=== PATIENT | female | born 1940 | race Caucasian/White ===

== ENCOUNTER 2017-02-13 20:00 | Inpatient (IN) | payer MEDICARE, MEDICAID ==
[~2017-02-13] VITALS: Ht 162.6 cm; Wt 69.7 kg
[2017-02-13 21:29] VITALS: BP 153/47; PULSE 85; TEMP 99.7
[2017-02-13] MEDS ORDERED: TYLEINFANT PO (22:23)
[2017-02-13] MEDS ORDERED: ASPIRIN E.C. 8181 MG PO (22:24)
[2017-02-13] MEDS ORDERED: CELEBREX 200MG200 MG PO (22:25)
[2017-02-13 22:32] LABS: HEMATOCRIT 35.5 % (37.0-47.0); HEMOGLOBIN 10.8 g/dl (12.5-16.0)
[2017-02-13] MEDS ORDERED: FENTANYL 12MCG TD (22:40)
[2017-02-13] MEDS ORDERED: KEPPRA SUSP100 MG/ML PO (23:47)
[2017-02-13] MEDS ORDERED: KEPPRA100 MG/ML PO (23:49)
[2017-02-13] MEDS ORDERED: LEVOXYL0.125 MG PO (23:50)
[2017-02-13] MEDS ORDERED: ROXANOL 20MG20 MG/ML PO (23:58)
[2017-02-13] MEDS ORDERED: NORCO 325 MG-51 TAB PO (23:59)
[2017-02-14] MEDS ORDERED: ENTERAL NUTRITION FORMULA PO
[2017-02-14] MEDS ORDERED: PROTONIX 40MG T40 MG PO (00:01)
[2017-02-14 01:36] VITALS: BP 125/84; PULSE 63; TEMP 98.3
[2017-02-14 01:46] LABS: PH 8 (5-8); SQUAMOUS EPITHELIAL None Seen /hpf; URINE APPEARANCE Cloudy; URINE BACTERIA Rare /hpf; URINE BILIRUBIN Negative (NEGATIVE); URINE BLOOD Negative (NEGATIVE); URINE COLOR Amber; URINE GLUCOSE Negative (NEGATIVE); URINE KETONE Negative (NEGATIVE); URINE RBC >50 /hpf; URINE UROBILINOGEN Negative (NEGATIVE)
[2017-02-14 01:47] LABS: URINE WBC >50 /hpf
[2017-02-14] MEDS ORDERED: KEPPRA SUSP100 MG/ML PO (04:13)
[2017-02-14 05:35] VITALS: BP 149/65; PULSE 69; TEMP 99.7
[2017-02-14 07:54] LABS: BASO # 0.1 (0.0-0.2); BASO % 0.5 % (0.0-2.0); EOS # 0.6 (0.0-0.7); GRAN # 9.6 (1.4-6.5); GRAN % 70.8 % (42.2-75.2); HEMATOCRIT 30.4 % (37.0-47.0); HEMOGLOBIN 9.2 g/dl (12.5-16.0); LYMPH # 2.3 (1.2-3.4); LYMPH % 16.7 % (20.0-51.0); MEAN CELL VOLUME 86 fl (80.0-100.0); MEAN CORPUSCULAR HEMOGLOBIN 26 pg (27.0-31.0); MEAN CORPUSCULAR HGB CONC 30 g/dl (33.0-37.0); MEAN PLATELET VOLUME 10.9 fl (7.4-10.4); MONO % 7.2 % (1.7-9.3); PLATELET COUNT 461 K/mm3 (130-400); RED BLOOD COUNT 3.53 M/mm3 (4.10-5.30); REDCELL DISTRIBUTION WIDTH-CV 15.8 % (11.5-14.5); WHITE BLOOD COUNT 13.6 K/mm3 (4.8-10.8)
[2017-02-14 08:11] LABS: ADJUSTED CALCIUM 9.3 mg/dL (8.4-10.2); ALBUMIN 2.9 gm/dL (3.5-5.0); BILIRUBIN,TOTAL 0.3 mg/dL (0.0-1.0); CALCIUM 8.4 mg/dL (8.4-10.2); CREATININE, serum 1.2 mg/dL (0.52-1.25); POTASSIUM 4.3 mmol/L (3.4-5.0); TOTAL PROTEIN 6.8 gm/dL (6.4-8.2)
[2017-02-14 09:14] VITALS: BP 113/54; PULSE 68; TEMP 97.7
[2017-02-14 13:30] VITALS: BP 121/52; PULSE 69; TEMP 99.3
[2017-02-14 17:23] VITALS: BP 124/43; PULSE 70; TEMP 97.7
[2017-02-14 22:17] VITALS: BP 141/76; PULSE 68; TEMP 97.4
[2017-02-15] VITALS (7 sets, daily range): BP systolic 148–175; BP diastolic 49–83; PULSE 63–77; TEMP 98.3–99.2
[2017-02-16 02:32] VITALS: BP 152/52; PULSE 77; TEMP 98.1
[2017-02-16 05:52] VITALS: BP 151/56; PULSE 66; TEMP 97.9
[2017-02-16 07:21] LABS: BASO % 0.3 % (0.0-2.0); EOS # 0.4 (0.0-0.7); EOS % 3.3 % (0-4.0); GRAN # 7.3 (1.4-6.5); GRAN % 64.8 % (42.2-75.2); LYMPH # 2.7 (1.2-3.4); LYMPH % 24.3 % (20.0-51.0); MEAN CELL VOLUME 85 fl (80.0-100.0); MEAN CORPUSCULAR HGB CONC 31 g/dl (33.0-37.0); MEAN PLATELET VOLUME 10.5 fl (7.4-10.4); MONO # 0.7 (0.1-0.6); MONO % 6.5 % (1.7-9.3); PLATELET COUNT 383 K/mm3 (130-400); RED BLOOD COUNT 3.39 M/mm3 (4.10-5.30); REDCELL DISTRIBUTION WIDTH-CV 15.8 % (11.5-14.5); WHITE BLOOD COUNT 11.3 K/mm3 (4.8-10.8)
[2017-02-16 07:33] LABS: HEMATOCRIT 28.7 % (37.0-47.0); HEMOGLOBIN 8.8 g/dl (12.5-16.0); MEAN CORPUSCULAR HEMOGLOBIN 26 pg (27.0-31.0)
[2017-02-16 07:36] LABS: CALCIUM 8.4 mg/dL (8.4-10.2); CREATININE, serum 0.9 mg/dL (0.52-1.25); POTASSIUM 3.5 mmol/L (3.4-5.0)
[2017-02-16 09:48] VITALS: BP 150/50; PULSE 66; TEMP 97.4
[2017-02-16 13:01] VITALS: BP 132/67; PULSE 78; TEMP 98.3
[2017-02-16 14:57] LABS: HEMATOCRIT 29.6 % (37.0-47.0); HEMOGLOBIN 9.2 g/dl (12.5-16.0)
[2017-02-16 18:05] VITALS: BP 122/59; PULSE 63; TEMP 97.5
[2017-02-16 22:13] VITALS: BP 145/41; PULSE 66; TEMP 97.7
[2017-02-17] VITALS (11 sets, daily range): BP systolic 133–163; BP diastolic 48–77; PULSE 49–71; TEMP 98–98.4
[2017-02-17 06:38] LABS: BASO % 0.3 % (0.0-2.0); EOS # 0.5 (0.0-0.7); EOS % 5.1 % (0-4.0); GRAN % 55.3 % (42.2-75.2); LYMPH # 2.9 (1.2-3.4); MEAN CELL VOLUME 86 fl (80.0-100.0); MEAN CORPUSCULAR HGB CONC 30 g/dl (33.0-37.0); MEAN PLATELET VOLUME 10.7 fl (7.4-10.4); MONO # 0.6 (0.1-0.6); MONO % 6.6 % (1.7-9.3); PLATELET COUNT 356 K/mm3 (130-400); RED BLOOD COUNT 3.31 M/mm3 (4.10-5.30); REDCELL DISTRIBUTION WIDTH-CV 15.7 % (11.5-14.5)
[2017-02-17 06:45] LABS: HEMATOCRIT 28.5 % (37.0-47.0); HEMOGLOBIN 8.6 g/dl (12.5-16.0); MEAN CORPUSCULAR HEMOGLOBIN 26 pg (27.0-31.0)
[2017-02-17 06:48] LABS: CALCIUM 8.4 mg/dL (8.4-10.2); CREATININE, serum 0.85 mg/dL (0.52-1.25); POTASSIUM 3.5 mmol/L (3.4-5.0)
[2017-02-18 02:00] VITALS: BP 155/59; PULSE 64; TEMP 97.6
[2017-02-18 05:37] VITALS: BP 156/60; PULSE 65; TEMP 98.2
[2017-02-18 08:09] LABS: HEMATOCRIT 30.5 % (37.0-47.0); HEMOGLOBIN 8.9 g/dl (12.5-16.0)
[2017-02-18 10:04] VITALS: BP 153/72; PULSE 73
[2017-02-18] MEDS ORDERED: CIPRO 500MG TA500 MG PO (11:55)
[2017-02-18] MEDS ORDERED: ROXANOL 20MG20 MG/ML PO (11:58)
[2017-02-18] MEDS ORDERED: FENTANYL 12MCG TD (11:58)
[2017-02-18] MEDS ORDERED: SSD25 GM TP (11:58)
[2017-02-18] MEDS ORDERED: COLACE 100100 MG/CAP PO (11:58)
[2017-02-18] MEDS ORDERED: NORCO 325 MG-51 TAB PO (11:58)
[2017-02-18 13:47] VITALS: BP 153/72; PULSE 73; TEMP 98.6
[2017-02-18 14:03] VITALS: BP 147/75; PULSE 75
== END 2017-02-18 15:00 | DRG 239 ==
LOC: SURG 20:00
PROVIDERS: Family Medicine; Internal Medicine Gastroenterology; Nurse Practitioner Family; Orthopaedic Surgery
PROC: 0DJD8ZZ Inspection of Lower Intestinal Tract, Via Natural or Artificial Opening Endoscopic (ICD-10-PCS; 2017-02-15)
PROC: 0DJ08ZZ Inspection of Upper Intestinal Tract, Via Natural or Artificial Opening Endoscopic (ICD-10-PCS; 2017-02-15 16:00)
PROC: 0Y6D0Z2 Detachment at Left Upper Leg, Mid, Open Approach (ICD-10-PCS; principal; 2017-02-17 12:00)
DX: I70.268 Atherosclerosis of native arteries of extremities with gangrene, other extremity (principal); J18.9 Pneumonia, unspecified organism; L89.323 Pressure ulcer of left buttock, stage 3; N17.9 Acute kidney failure, unspecified; L97.124 Non-pressure chronic ulcer of left thigh with necrosis of bone; T83.511A Infection and inflammatory reaction due to indwelling urethral catheter, initial encounter; Z66 Do not resuscitate; L98.494 Non-pressure chronic ulcer of skin of other sites with necrosis of bone; G30.9 Alzheimer's disease, unspecified; F02.80 Dementia in other diseases classified elsewhere, unspecified severity, without behavioral disturbance, psychotic disturbance, mood disturbance, and anxiety; I69.320 Aphasia following cerebral infarction; Z87.891 Personal history of nicotine dependence; D64.9 Anemia, unspecified; D50.0 Iron deficiency anemia secondary to blood loss (chronic); G89.29 Other chronic pain; K57.30 Diverticulosis of large intestine without perforation or abscess without bleeding; L89.892 Pressure ulcer of other site, stage 2; L89.619 Pressure ulcer of right heel, unspecified stage; L89.152 Pressure ulcer of sacral region, stage 2
CPT/HCPCS: 99233-AI; 99239; C1751; J0456; J0696; J1100; J2405; J2704; J2765; J3010; J7030; J7050